=== PATIENT | female | born 1950 | race Caucasian/White ===

== ENCOUNTER 2018-11-09 06:08 | Day surgery (SDC) | payer MEDICARE, OTHER ==
[~2018-11-09] VITALS: Ht 165.1 cm; Wt 113.4 kg
[~2018-11-09 06:08] MED LIST: ACET65TA OR; ACETAMINOPHEN 325 MG TAB PO PRN; BISA5TA OR; CENTRUM SILVER PO; COUM1TAB18 OR; COUM2.5T17 PO; LEVO75TA2 OR; LEVO75TA4 PO; MONT10TA2 PO; OMEP-218 PO; OMEP20TA7 OR; OXYC10TA97 OR; PERC5TAB8 OR; PERC7.5T8 OR; PERCOCET PO; QC A650T3 PO; SING10TA31 OR; TYLE325T5 PO; VITAMIN D 2 PO; VITAMIN D PO
[2018-11-09] MEDS ORDERED: CEFUROXIME 1MG/0.1ML INTRACAMERAL INJ As Ordered ONE (06:34)
[2018-11-09] MEDS ORDERED: LIDOCAINE 0.75%/EPINEPHRINE 0.025% IN BSS 1ML SYR INTRACAMERAL (OR ONLY) As Ordered ONE (06:34)
[2018-11-09] MEDS ORDERED: BALANCED SALT IRRIGATION SOLUTION 500ML BAG (FOR OR EYE MACHINE) As Ordered ONE (06:34)
[2018-11-09] MEDS ORDERED: POVIDONE-IODINE 5% OPHTH PREP SOL 30ML As Ordered ONE (06:34)
[2018-11-09] MEDS ORDERED: DUOVISC (0.50ML VISCOAT/0.55ML PROVISC) OPHTH KIT As Ordered ONE (06:34)
[2018-11-09] MEDS ORDERED: PHEN15CA PO (06:48)
[2018-11-09] MEDS ORDERED: PHENYLEPHRINE 2.5% OPHTH SOL 2ML OS ONE (07:00)
[2018-11-09] MEDS ORDERED: OFLOXACIN 0.3 % (OCUFLOX) OPTH SOL 5ML OS ONE (07:00)
[2018-11-09] MEDS ORDERED: PROPARACAINE 0.5% OPHTH SOL 15ML OS ONE (07:00)
[2018-11-09] MEDS ORDERED: TROPICAMIDE 1% OPHTH SOLN 2ML OS ONE (07:00)
[2018-11-09] MEDS ORDERED: MIDAZOLAM INJ 2 MG/2 ML VIAL (J2250) As Ordered ONE ×2 (07:12→07:58)
[2018-11-09] MEDS ORDERED: TRIMETHOBENZAMIDE 300 MG CAP PO PRN (08:15)
[2018-11-09 08:24] VITALS: BP 126/66
--- NOTE | 2018-11-10 16:04 | RO ---
DATE OF PROCEDURE: 11/09/2018 PREOPERATIVE DIAGNOSIS: 1. Visually significant nuclear sclerotic cataract left eye. POSTOPERATIVE DIAGNOSIS: 1. Visually significant nuclear sclerotic cataract left eye. PROCEDURE PERFORMED: 1. Cataract extraction with use of phacoemulsification, and placement of intraocular lens, [id number], 20.0 D, left eye, with use of intraoperative aberrometry. SURGEON: Dr. Dipak John RADIO RECORDER: ANESTHESIA: Local with monitored anesthesia care (MAC). COMPLICATIONS: None. POSTOPERATIVE CONDITION: Stable. INDICATION FOR SURGERY: 1. Blurred vision affecting patient's activities of daily living. DESCRIPTION OF PROCEDURE: The patient was seen in the preoperative area and properly identified. The correct operative eye was identified and marked. The patient received topical anesthetic, antibiotics, and topical dilating drops. The patient was then transferred to the operating room. The correct side was re-identified and a time-out was performed. The eye was prepped and draped in a sterile fashion. The eyelids were isolated with Tegaderm tape, and the lids were held open with an adjustable speculum. A 1.0 mm paracentesis incision was made. Intraocular preservative-free Shugarcaine was then injected into the anterior chamber through the paracentesis. Using a 2.4 mm sharp-tipped keratome, the anterior chamber was entered via a temporal clear corneal incision. A continuous curvilinear capsulorrhexis was created with Utrata forceps. Hydrodissection was performed with balanced salt solution (BSS) on a blunt cannula until the nucleus was able to rotate freely. The crystalline lens was phacoemulsified and aspirated. Irrigation/aspiration was used to remove the cortical material. Cohesive viscoelastic was placed into the capsular bag to deepen it. The Optiwave Refractive Analysis (ORA) device was turned on, two sets of measurements were obtained, and the implant power was confirmed. The implant was placed into the capsular bag and allowed to unfold. Placement was confirmed by visualizing the anterior capsulorrhexis. Irrigation/aspiration was used to remove the viscoelastic. The clear corneal incision was hydrated with BSS on a blunt cannula. The lens was well positioned. The incisions were then tested for leaks and found to be negative. The eye was then palpated for appropriate pressure and adjusted accordingly with BSS. The eyelid speculum was then carefully removed. A shield was placed over the eye. The patient tolerated the procedure well and was discharged to the recovery unit in a stable condition. RAJ
== END 2018-11-09 08:26 | disposition home or self-care (01) ==
LOC: M SDC 06:08
PROVIDERS: ATTEND Ophthalmology
DX: H25.12 Age-related nuclear cataract, left eye (principal); G47.30 Sleep apnea, unspecified; E03.9 Hypothyroidism, unspecified; J45.909 Unspecified asthma, uncomplicated; Z79.899 Other long term (current) drug therapy
CPT/HCPCS: 66984; 92015; J2250; V2788

== ENCOUNTER 2024-10-22 07:39 | Day surgery (SDC) | payer MEDICARE, OTHER ==
[~2024-10-22] VITALS: Ht 162.6 cm; Wt 73.5 kg
[~2024-10-22 07:39] MED LIST changes: -ACETAMINOPHEN 325 MG TAB PO PRN; +ALEN70TA82 PO; +CYCLOPENTOLATE 1% OPHTH SOLN 2ML BTL OD SCH; +ERGO500029 PO; +FLURBIPROFEN 0.03% OPHTH SOLN 2.5 ML OD SCH; +LR 1,000 ML IV SCH; +MIDAZOLAM INJ 2MG/2ML VIAL As Ordered ONE; -MONT10TA2 PO; +MONT10TA97 PO; +OMEP-173 PO; -OMEP-218 PO; +OMEP-611 PO; +PHEN15CA6 PO; +PHENYLEPHRINE 2.5% OPHTH SOL 2ML OD SCH; +SYNT88TA2 PO; +TETRACAINE 0.5% OPHTH SOLN 4ML OD SCH
[2024-10-22] MEDS: LIDOCAINE 1% SDV 5ML VIAL As Ordered ONE (09:55)
[2024-10-22] MEDS ORDERED: fentaNYL 100 MCG/2 ML INJECTION As Ordered ONE (09:57)
[2024-10-22] MEDS: CEFUROXIME 1MG/0.1ML INTRACAMERAL INJ As Ordered ONE (09:57)
[2024-10-22 10:28] VITALS: BP 128/71; TEMP 97.4; O2SAT 96
== END 2024-10-22 10:47 | disposition home or self-care (01) ==
LOC: M SDC 07:39
PROVIDERS: ATTEND Ophthalmology
DX: H25.11 Age-related nuclear cataract, right eye (principal); E03.9 Hypothyroidism, unspecified; J45.909 Unspecified asthma, uncomplicated; K21.9 Gastro-esophageal reflux disease without esophagitis; Z79.899 Other long term (current) drug therapy; Z79.890 Hormone replacement therapy; Z98.84 Bariatric surgery status; G47.33 Obstructive sleep apnea (adult) (pediatric); E55.9 Vitamin D deficiency, unspecified
CPT/HCPCS: 66984; J0697; J2250; J3010; V2788